=== PATIENT | female | born 1995 | race Caucasian/White ===

== ENCOUNTER 2016-07-08 16:23 | Outpatient (CLI) | payer OTHER ==
[~2016-07-08 16:23] MED LIST: MULTI VITAMIN/MINERA; PERCOCET1 TA4 PO
--- NOTE | 2016-07-08 17:06 | DIAGNOSTIC IMAGING REPORT ---
PROCEDURE: XR RIBS BILATERAL INDICATION: RIB PAIN TECHNIQUE: Two views of the right and ribs with single PA view chest. COMPARISON: Chest 10/25/2014 FINDINGS: Left ribs: Nondisplaced rib fractures, no suspicious lesions. RIGHT RIBS: No displaced rib fractures. No suspicious rib lesions. CHEST: Normal cardiomediastinal contour. Clear lungs without pleural effusion, pneumothorax, or contusion. The other visible osseous structures are intact. IMPRESSION: 1. Intact right ribs. Intact left ribs 2. Normal chest without radiographic evidence of trauma.
== END 2016-07-08 23:00 ==
LOC: XR SRH 16:23
DX: R07.81 Pleurodynia (principal)